=== PATIENT | male | born 1960 | race Caucasian/White ===

== ENCOUNTER → 2024-12-05 | Outpatient (CLI) | payer OTHER, SELFPAY ==
--- NOTE | 2024-12-05 10:00 | XR_ITS ---
Examination: MRI brain without intravenous contrast. Date and time of exam: December 05, 2024 1011 hours Comparison January 14, 2015 INDICATIONS: Increasing memory loss beginning 6 months ago Technique: Multiple axial and sagittal images of the brain obtained. Siemens high-resolution 1.5 Evelia short bore scanners utilized. Sagittal sections, T1-weighted, TR 500, TE 14, are performed. Axial sections proton-density and T2-weighted have been obtained. Inversion recovery axial images, TR 9, 260, TE 111, TI 2500. Diffusion weighted images, axial sections, TR 4800, TE 128, B value 1000 Axial sections, ADC map, TR 4800, TE 128 Findings: Enlargement of the sella turcica is not present. The optic chiasm and infundibular are not remarkable. Prepontine and interpeduncular cisterns are not enlarged. There is no localized enlargement of the medulla or tyson. Fourth ventricle and cerebellar tonsils appear normal in position. No subacute area of hemorrhage density is seen. Mass in the cerebellopontine angle region is not evident. Globes symmetrical. Orbital musculature including medial lateral rectus muscles do not exhibit abnormality. Diffusion-weighted images demonstrate no focus of restricted diffusion. Increased white matter signal moderate, old infarct left cerebellar hemisphere Mass effect upon the ventricular system is not identified. 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
== END | disposition home or self-care (01) ==
PROVIDERS: PCP Family Medicine; Referring Provider Family Medicine; Visit Provider Family Medicine
DX: R90.82 White matter disease, unspecified (principal)
CPT/HCPCS: 70551